=== PATIENT | male | born 1960 | race Caucasian/White ===

== ENCOUNTER → 2023-05-25 09:56 | Outpatient (CLI) | payer OTHER, SELFPAY ==
--- NOTE | 2023-05-25 | DI.RAD.S_ITS ---
PROCEDURE: XR HIP W PEL IF DONE RT 2V INDICATIONS: HIP PAIN TECHNIQUE: AP pelvis with lateral view(s) of the right hip(s). COMPARISON: None. FINDINGS: Bones: Asymmetric moderate to severe right hip joint osteoarthritic changes are seen with near complete loss of superior joint space, extensive subchondral sclerosis and lateral marginal osteophyte formation. No evidence of avascular necrosis of femoral head. No fractures or dislocations. Pelvic ring appears intact. No suspicious bony lesions. Soft tissues: The visualized bowel gas pattern is normal. No suspicious soft tissue calcifications. IMPRESSION: Asymmetric moderate to severe right hip joint osteoarthritis. No fracture or dislocation. No evidence of avascular necrosis. Dictated by: Rhys Garcia M.D. on 05/25/2023 at 10:46 Approved by: Rhys Garcia M.D. on 05/25/2023 at 10:46
--- NOTE | 2023-05-25 | DI.RAD.S_ITS ---
PROCEDURE: XR KNEE RT 3V INDICATIONS: KNEE PAIN TECHNIQUE: 3 views of the knee were acquired. COMPARISON: None. FINDINGS: Bones: No fractures or dislocations. No suspicious bony lesions. Soft tissues: No joint effusion. No suspicious soft tissue calcifications. IMPRESSION: Intact right knee. Dictated by: Aneta Mendez M.D. on 05/25/2023 at 13:18 Approved by: Aneta Mendez M.D. on 05/25/2023 at 13:18
== END ==
PROVIDERS: PCP Physician Assistant; Referring Provider Physician Assistant; Visit Provider Physician Assistant
DX: M16.11 Unilateral primary osteoarthritis, right hip (principal); M25.551 Pain in right hip; M25.561 Pain in right knee
CPT/HCPCS: 73502; 73562